=== PATIENT | female | born 1965 | race Caucasian/White ===

== ENCOUNTER → 2019-01-26 18:48 | Outpatient (CLI) | payer SELFPAY | PROVIDERS: PCP Obstetrics & Gynecology; Visit Provider Physician Assistant | DX: M54.5 Low back pain (principal) | CPT/HCPCS: 87086 ==

== ENCOUNTER 2023-09-19 09:00 | Outpatient (RCR) | payer OTHER, SELFPAY ==
--- NOTE | 2023-08-08 15:00 | OT.OP.EVAL ---
Visit Care Team Role Provider Type Antionette Pickett MD Primary Care Provider Physician Specialty: Gynecology CLEANING TEAM MEMBER Obstetrics Address: [address] [place] [address], [phone] Email: [email or web address] Cody Loyd DO Attending Provider Non-Staff Referring Provider Specialty: Family Practice Address: [address] [place] [address], [phone] Fax: Email: Occupational Therapy Initial Evaluation OT Outpatient Adult Evaluation Start: 08/08/23 14:41 Freq: Status: Active Protocol: Document 08/08/23 15:00 AMS (Rec: 08/09/23 10:00 AMS [id number]) General Information - Adult Plan of Care Dates 08/08/23 - 09/19/23 Visit Start Time 13:10 Visit Stop Time 13:45 Treatment Setting Outpatient Care Note Type Initial Evaluation Referring Physician Cody Loyd DO Reason for Referral Pain of L thumb Precautions # visits = 6 Identification Confirmed Yes Identification Confirmed By Self, Steven Goals Treatment Paraffin. B hands. x 10 minutes. Power Barker Operator Goals 1. Steven will be modified independent with execution of home exercise program referencing written and visual instructions as needed. 2. Steven will verbalize 100% understanding of basic hand joint protection principles. Assessment/Plan Treatment Assessment Steven is 58 y.o.; she is R hand dominant. She was referred to outpatient OT secondary to ongoing L thumb pain. She reported that it presented 3-4 yrs ago; she denied any trauma that led to onset of symptoms. She had an x-ray at [facility] within the last 2 months; she reported that non- acute bone fragments were found floating around in the L hand in the x-ray. x-ray records were not available to this clinician at time of evaluation. Medical history is significant for back/muscle/nerve pain; cold intolerance; lumbrosacral disc disease; h/o R radius/ ulna distal fracture; spinal stenosis of lumbar region w/ neurogenic claudication; spondylolisthesis. Surgical history: R elbow bone chip removal; laparoscopy; partial hysterectomy; spine surgery; tubal ligation. She denied current use of medication, topical medication and/or splint for management of L thumb pain symptoms; trialed Voltaren w/ no success. Intermittent use of ice and heat. Overall, reported that ' very little gives her relief'. Pain Assessment Grid completed ; indicated of 6-8 out of 10 on pain scale relative to dorsal/volar surfaces of L thumb. Indication of 4 out of 10 on pain scale relative to R thumb. See EMR for additional details. 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 Mild L thumb edema noted. (+) bilateral thumb adductor tightness w/ L tightness slightly > R noted w/ palpation. 0-45 degrees active L radial thumb abduction vs 0 -45 degrees active R radial thumb abduction. 0-50 degrees active L palmar radial thumb abduction vs 0-50 degrees active R palmar radial thumb abduction. OT rec to est HEP and to provide joint protection education and to assist w/ identification of conservative measures of pain/swelling management. Home Exercise Program 08/08/23 = Rec consideration of home paraffin bath. Instructed in bilateral myofascial thumb add release; hold for 20-30 sec and switch. Repeat. Complete as needed. Instructed in palpation pre- and post- myofasical treatment d/t determine if change palpable. Began education re: basic joint protection for the hands, specifically avoiding positions of deformity and rec avoiding heavy resisted and/ or prolonged pinching w/ the thumbs. Length of treatment (weeks) 6 Plan of Care Start Date 08/08/23 Plan of Care End Date 09/19/23 Treatment Frequency Once a Week Therapeutic Contents Active Range of Motion, Adaptive Equipment Education, Client Education,Functional Activities,Home Exercise Program,Joint Protection, Manual Therapy,Education, Neurodevelopment Treatment, Neuromuscular Re-Education, Self-Care,Stretching/ Flexibility Activities, Therapeutic Activities, Therapeutic Exercises, Modalities Modalities As Needed,As Prescribed Additional Types of Modalities Heat/Ice/Contrast baths/ Ultrasound/Paraffin bath. Suggested Referrals Physical Therapy
--- NOTE | 2023-08-16 16:01 | OT.OP.TRT ---
Visit Care Team Role Provider Type Antionette Pickett MD Primary Care Provider Physician Specialty: Gynecology METAL TRIMMER Obstetrics Address: [address] [place] [address], [phone] Email: [email or web address] Cody Loyd DO Attending Provider Non-Staff Referring Provider Specialty: Family Practice Address: [address] [place] [address], [phone] Fax: Email: Occupational Therapy Treatment Note OT Outpatient Treatment Note - Adult Start: 08/08/23 14:41 Freq: Status: Active Protocol: Document 08/16/23 15:53 AMS (Rec: 08/16/23 16:01 AMS [id number]) OT Outpatient Adult Treatment Note Session Time Visit Start Time 10:30 Visit Stop Time 11:10 Visit Information Visit Number 2/ Plan of Care Dates 08/08/23 - 09/19/23 Insurance Information [facility]; x 6 auth by MD Setting Treatment Setting Outpatient Care Visit Type Note Type Treatment Note General Information General Information Steven is 58 y.o.; she is R hand dominant. She was referred to outpatient OT secondary to ongoing L thumb pain. She reported that it presented 3-4 yrs ago; she denied any trauma that led to onset of symptoms. She had an x-ray at [facility] within the last 2 months; she reported that non- acute bone fragments were found floating around in the L hand in the x-ray. x-ray records were not available to this clinician at time of evaluation. Medical history is significant for back/muscle/nerve pain; cold intolerance; lumbrosacral disc disease; h/o R radius/ ulna distal fracture; spinal stenosis of lumbar region w/ neurogenic claudication; spondylolisthesis. Surgical history: R elbow bone chip removal; laparoscopy; partial hysterectomy; spine surgery; tubal ligation. She denied current use of medication, topical medication and/or splint for management of L thumb pain symptoms; trialed Voltaren w/ no success. Intermittent use of ice and heat. Overall, reported that ' very little gives her relief'. - Subjective Identification Type Name Identification Reconciled With Medical Record Observations Awaiting copies of records from [facility]. Patient/Caregiver Compliance with Home Good Exercise Program - Objective Objective Measurements Please refer to below for progress towards meeting established OT goals: Documentation Engineer Goals 1. Steven will be modified independent with execution of home exercise program referencing written and visual instructions as needed. 2. Steven will verbalize 100% understanding of basic hand joint protection principles. - Treatment 2 Descriptor Ultrasound. 20% duty cycle. 2. 0w/cm2. Dorsal L thumb webspace. Skin intact pre- and post- treatment. 1 Descriptor Paraffin bath. B hands/wrists. x 10 minutes. Skin intact pre - and post- treatment. Exercises 1 Descriptor Reviewed bilateral thumb add myofascial release. Instructed in gentle resistive strengthening w/ use of single rubberband for thumb abduction and thumb extension. - Assessment Assessment of Improvement Advanced HEP. See below. (+) response to ultrasound and paraffin. OT rec to est HEP and to provide joint protection education and to assist w/ identification of conservative measures of pain/swelling management. Home Exercise Program 08/16/23 = Instructed in gentle thumb strengthening w/ use of single rubberband; rec gentle resistive thumb ext and thumb abd w/ use of single rubberband; rubberband to be positioned proximal to MPJ; rec 3 sets x 15 reps, more reps as tolerated w/ increase to 20 reps; every other day or 3 x a week. 08/08/23 = Rec consideration of home paraffin bath. Instructed in bilateral myofascial thumb add release; hold for 20-30 sec and switch. Repeat. Complete as needed. Instructed in palpation pre- and post- myofasical treatment d/t determine if change palpable. Began education re: basic joint protection for the hands, specifically avoiding positions of deformity and rec avoiding heavy resisted and/ or prolonged pinching w/ the thumbs. - Plan Therapy Recommendations Advance per Rehabilitation Protocol
--- NOTE | 2023-08-22 15:47 | OT.OP.TRT ---
Visit Care Team Role Provider Type Antionette Pickett MD Primary Care Provider Physician Specialty: Gynecology RIVER TESTER Obstetrics Address: [address] [place] [address], [phone] Email: [email or web address] Cody Loyd DO Attending Provider Non-Staff Referring Provider Specialty: Family Practice Address: [address] [place] [address], [phone] Fax: Email: Occupational Therapy Treatment Note OT Outpatient Treatment Note - Adult Start: 08/08/23 14:41 Freq: Status: Active Protocol: Document 08/22/23 15:34 AMS (Rec: 08/22/23 15:47 AMS [id number]) OT Outpatient Adult Treatment Note Session Time Visit Start Time 13:05 Visit Stop Time 13:45 Visit Information Visit Number 05/23 Plan of Care Dates 08/08/23 - 09/19/[address] [facility]; x 6 auth by MD Setting Treatment Setting Outpatient Care Visit Type Note Type Treatment Note General Information General Information Steven is 58 y.o.; she is R hand dominant. She was referred to outpatient OT secondary to ongoing L thumb pain. She reported that it presented 3-4 yrs ago; she denied any trauma that led to onset of symptoms. She had an x-ray at [facility] within the last 2 months; she reported that non- acute bone fragments were found floating around in the L hand in the x-ray. x-ray records were not available to this clinician at time of evaluation. Medical history is significant for back/muscle/nerve pain; cold intolerance; lumbrosacral disc disease; h/o R radius/ ulna distal fracture; spinal stenosis of lumbar region w/ neurogenic claudication; spondylolisthesis. Surgical history: R elbow bone chip removal; laparoscopy; partial hysterectomy; spine surgery; tubal ligation. She denied current use of medication, topical medication and/or splint for management of L thumb pain symptoms; trialed Voltaren w/ no success. Intermittent use of ice and heat. Overall, reported that ' very little gives her relief'. - Subjective Identification Type Name Identification Reconciled With Medical Record Observations X-ray 06/12/23 at [facility] for L thumb pain: 2 views of hand acquired. Findings: Mild degenerative changes at the 1st CMCJ and STT joints. No displaced fracture or dislocation. Nonacute bone fragments are seen at the base of the 1st metacarpal. If there is high concern for further derangement, consider MRI evaluation. Approved by Mariano Gary MD Pain/discomfort reported w/ light resisted thumb exercises ; thus, transitioned to AROM. Patient/Caregiver Compliance with Home Good Exercise Program - Objective Objective Measurements Please refer to below for progress towards meeting established OT goals: Custodial Goals 1. Steven will be modified independent with execution of home exercise program referencing written and visual instructions as needed. 2. Steven will verbalize 100% understanding of basic hand joint protection principles. - Treatment 2 Descriptor Ultrasound. 20% duty cycle. 2. 0w/cm2. Dorsal L thumb webspace. Skin intact pre- and post- treatment. 1 Descriptor Paraffin bath. B hands/wrists. x 13 minutes. Skin intact pre - and post- treatment. Exercises 1 Descriptor Reviewed bilateral thumb add myofascial release. Instructed in gentle resistive strengthening w/ use of single rubberband for thumb abduction and thumb extension. - Assessment Assessment of Improvement X-ray 06/12/23 at [facility] for L thumb pain: 2 views of hand acquired. Findings: Mild degenerative changes at the 1st CMCJ and STT joints. No displaced fracture or dislocation. Nonacute bone fragments are seen at the base of the 1st metacarpal. If there is high concern for further derangement, consider MRI evaluation. Approved by Mariano Gary MD Steven indicated that light resistant thumb exercises exacerbated thumb symptoms; thus, transitioned to AROM exercises as an alternative. Report of doing AROM exercises daily. Reviewed recommendations for gentle, light resistive thumb strengthening exercise(s) and/ or AROM if resistance exercises not tolerated; heat to support range of motion of thumb; conservative measures for swelling management, such as ice or contrast baths and/ or home investment in paraffin bath (Jodie is brand used in clinic); basic joint protection principles; use of adaptive equipment and/or compensatory strategies (e.g., spring loaded scissors); and consideration of thumb spica brace. Did agree that Steven should see UE hand specialist to discuss less conservative measures of treatment; may benefit from a referral to certified hand therapist for fabrication of custom-thumb spica splint. OT rec to est HEP and to provide joint protection education and to assist w/ identification of conservative measures of pain/swelling management. Home Exercise Program 08/16/23 = Instructed in gentle thumb strengthening w/ use of single rubberband; rec gentle resistive thumb ext and thumb abd w/ use of single rubberband; rubberband to be positioned proximal to MPJ; rec 3 sets x 15 reps, more reps as tolerated w/ increase to 20 reps; every other day or 3 x a week. 08/08/23 = Rec consideration of home paraffin bath. Instructed in bilateral myofascial thumb add release; hold for 20-30 sec and switch. Repeat. Complete as needed. Instructed in palpation pre- and post- myofasical treatment d/t determine if change palpable. Began education re: basic joint protection for the hands, specifically avoiding positions of deformity and rec avoiding heavy resisted and/ or prolonged pinching w/ the thumbs. - Plan Therapy Recommendations Advance per Rehabilitation Protocol Other Referrals Certified hand therapist (for consideration of custom-thumb spica splint)
--- NOTE | 2023-09-11 12:18 | OT.OP.TRT ---
Visit Care Team Role Provider Type Antionette Pickett MD Primary Care Provider Physician Specialty: Gynecology LUG LOADER Obstetrics Address: [address] [place] [address], [phone] Email: [email or web address] Cody Loyd DO Attending Provider Non-Staff Referring Provider Specialty: Family Practice Address: [address] [place] [address], [phone] Email: Occupational Therapy Treatment Note OT Outpatient Treatment Note - Adult Start: 08/08/23 14:41 Freq: Status: Active Protocol: Document 09/11/23 12:15 AMS (Rec: 09/11/23 12:18 AMS [id number]) OT Outpatient Adult Treatment Note Session Time Visit Start Time 09:00 Visit Stop Time 09:30 Visit Information Visit Number 4/6 Plan of Care Dates 08/08/23 - 09/19/23 Insurance Information [facility]; x 6 auth by MD Setting Treatment Setting Outpatient Care Visit Type Note Type Treatment Note General Information General Information Steven is 58 y.o.; she is R hand dominant. She was referred to outpatient OT secondary to ongoing L thumb pain. She reported that it presented 3-4 yrs ago; she denied any trauma that led to onset of symptoms. She had an x-ray at [facility] within the last 2 months; she reported that non- acute bone fragments were found floating around in the L hand in the x-ray. x-ray records were not available to this clinician at time of evaluation. Medical history is significant for back/muscle/nerve pain; cold intolerance; lumbrosacral disc disease; h/o R radius/ ulna distal fracture; spinal stenosis of lumbar region w/ neurogenic claudication; spondylolisthesis. Surgical history: R elbow bone chip removal; laparoscopy; partial hysterectomy; spine surgery; tubal ligation. She denied current use of medication, topical medication and/or splint for management of L thumb pain symptoms; trialed Voltaren w/ no success. Intermittent use of ice and heat. Overall, reported that ' very little gives her relief'. - Subjective Identification Type Name Identification Reconciled With Medical Record Observations X-ray 06/12/23 at [facility] for L thumb pain: 2 views of hand acquired. Findings: Mild degenerative changes at the 1st CMCJ and STT joints. No displaced fracture or dislocation. Nonacute bone fragments are seen at the base of the 1st metacarpal. If there is high concern for further derangement, consider MRI evaluation. Approved by Mariano Gary MD Pain/discomfort reported w/ light resisted thumb exercises ; thus, transitioned to AROM. Patient/Caregiver Compliance with Home Good Exercise Program - Objective Objective Measurements Please refer to below for progress towards meeting established OT goals: Correction Goals 1. Steven will be modified independent with execution of home exercise program referencing written and visual instructions as needed. 2. Steven will verbalize 100% understanding of basic hand joint protection principles. - Treatment 2 Descriptor Ultrasound. 20% duty cycle. 2. 0w/cm2. Dorsal L thumb webspace. Skin intact pre- and post- treatment. 1 Descriptor Paraffin bath. B hands/wrists. x 13 minutes. Skin intact pre - and post- treatment. Exercises 1 Descriptor Reviewed bilateral thumb add myofascial release. Instructed in gentle resistive strengthening w/ use of single rubberband for thumb abduction and thumb extension. - Assessment Assessment of Improvement X-ray 06/12/23 at [facility] for L thumb pain: 2 views of hand acquired. Findings: Mild degenerative changes at the 1st CMCJ and STT joints. No displaced fracture or dislocation. Nonacute bone fragments are seen at the base of the 1st metacarpal. If there is high concern for further derangement, consider MRI evaluation. Approved by Mariano Gary MD Report of doing AROM exercises daily. Some left wrist soreness reported; rec passive wrist stretches. (-) signs or symptoms of intrinsic tightness bilaterally. Did agree that Steven should see UE hand specialist to discuss less conservative measures of treatment; may benefit from a referral to certified hand therapist for fabrication of custom-thumb spica splint. OT rec to est HEP and to provide joint protection education and to assist w/ identification of conservative measures of pain/swelling management. Home Exercise Program 08/16/23 = Instructed in gentle thumb strengthening w/ use of single rubberband; rec gentle resistive thumb ext and thumb abd w/ use of single rubberband; rubberband to be positioned proximal to MPJ; rec 3 sets x 15 reps, more reps as tolerated w/ increase to 20 reps; every other day or 3 x a week. 08/08/23 = Rec consideration of home paraffin bath. Instructed in bilateral myofascial thumb add release; hold for 20-30 sec and switch. Repeat. Complete as needed. Instructed in palpation pre- and post- myofasical treatment d/t determine if change palpable. Began education re: basic joint protection for the hands, specifically avoiding positions of deformity and rec avoiding heavy resisted and/ or prolonged pinching w/ the thumbs. - Plan Therapy Recommendations Advance per Rehabilitation Protocol Other Referrals Certified hand therapist (for consideration of custom-thumb spica splint)
--- NOTE | 2023-09-19 09:55 | OT.OPPOC ---
Physical, Occupational & Speech Therapy At [facility] Steven Brownlee [id number] 1965 Visit Care Team Role Provider Type Antionette Pickett MD Primary Care Provider Physician Address: [address] [place] [address], [id number] Cody Loyd DO Attending Provider Non-Staff Referring Provider Address: [address] [place] [address], [id number] Occupational Therapy Plan of Care OT Outpatient Adult Evaluation Start: 08/08/23 14:41 Freq: Status: Active Protocol: Document 08/08/23 15:00 AMS (Rec: 08/09/23 10:00 AMS [id number]) General Information - Adult Visit Information Plan of Care Dates 08/08/23 - 09/19/23 Session Time Visit Start Time 13:10 Visit Stop Time 13:45 Setting Treatment Setting Outpatient Care Visit Type Note Type Initial Evaluation Referral Referring Physician Cody Loyd DO Reason for Referral Pain of L thumb Precautions # visits = 6 Identification Identification Confirmed Yes Identification Confirmed By Self, Steven Goals Treatment Treatment Paraffin. B hands. x 10 minutes. Shelter Goals [employer] Team Member Goals 1. Steven will be modified independent with execution of home exercise program referencing written and visual instructions as needed. 2. Steven will verbalize 100% understanding of basic hand joint protection principles. Assessment/Plan Assessment Treatment Assessment Steven is 58 y.o.; she is R hand dominant. She was referred to outpatient OT secondary to ongoing L thumb pain. She reported that it presented 3-4 yrs ago; she denied any trauma that led to onset of symptoms. She had an x-ray at [facility] within the last 2 months; she reported that non- acute bone fragments were found floating around in the L hand in the x-ray. x-ray records were not available to this clinician at time of evaluation. Medical history is significant for back/muscle/nerve pain; cold intolerance; lumbrosacral disc disease; h/o R radius/ ulna distal fracture; spinal stenosis of lumbar region w/ neurogenic claudication; spondylolisthesis. Surgical history: R elbow bone chip removal; laparoscopy; partial hysterectomy; spine surgery; tubal ligation. She denied current use of medication, topical medication and/or splint for management of L thumb pain symptoms; trialed Voltaren w/ no success. Intermittent use of ice and heat. Overall, reported that ' very little gives her relief'. Pain Assessment Grid completed ; indicated of 6-8 out of 10 on pain scale relative to dorsal/volar surfaces of L thumb. Indication of 4 out of 10 on pain scale relative to R thumb. See EMR for additional details. 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 Mild L thumb edema noted. (+) bilateral thumb adductor tightness w/ L tightness slightly > R noted w/ palpation. 0-45 degrees active L radial thumb abduction vs 0 -45 degrees active R radial thumb abduction. 0-50 degrees active L palmar radial thumb abduction vs 0-50 degrees active R palmar radial thumb abduction. OT rec to est HEP and to provide joint protection education and to assist w/ identification of conservative measures of pain/swelling management. Home Exercise Program 08/08/23 = Rec consideration of home paraffin bath. Instructed in bilateral myofascial thumb add release; hold for 20-30 sec and switch. Repeat. Complete as needed. Instructed in palpation pre- and post- myofasical treatment d/t determine if change palpable. Began education re: basic joint protection for the hands, specifically avoiding positions of deformity and rec avoiding heavy resisted and/ or prolonged pinching w/ the thumbs. Plan Length of treatment (weeks) 6 Plan of Care Start Date 08/08/23 Plan of Care End Date 09/19/23 Treatment Frequency Once a Week Therapeutic Contents Active Range of Motion, Adaptive Equipment Education, Client Education,Functional Activities,Home Exercise Program,Joint Protection, Manual Therapy,Education, Neurodevelopment Treatment, Neuromuscular Re-Education, Self-Care,Stretching/ Flexibility Activities, Therapeutic Activities, Therapeutic Exercises, Modalities Modalities As Needed,As Prescribed Additional Types of Modalities Heat/Ice/Contrast baths/ Ultrasound/Paraffin bath. Suggested Referrals Physical Therapy Functional Wrist/Hand Scan Hand Side Sensory Assessment Sensory Profile2 OT Outpatient Treatment Note - Adult Start: 08/08/23 14:41 Freq: Status: Active Protocol: Document 09/19/23 09:44 AMS (Rec: 09/19/23 09:54 AMS [id number]) OT Outpatient Adult Treatment Note Session Time Visit Start Time 09:00 Visit Stop Time 09:30 Visit Information Visit Number [id number] Plan of Care Dates 09/19/23 - 10/24/23 Insurance Information [facility]; x 6 auth by MD Setting Treatment Setting Outpatient Care Visit Type Note Type Treatment Note General Information General Information Steven is 58 y.o.; she is R hand dominant. She was referred to outpatient OT secondary to ongoing L thumb pain. She reported that it presented 3-4 yrs ago; she denied any trauma that led to onset of symptoms. She had an x-ray at [facility] within the last 2 months; she reported that non- acute bone fragments were found floating around in the L hand in the x-ray. x-ray records were not available to this clinician at time of evaluation. Medical history is significant for back/muscle/nerve pain; cold intolerance; lumbrosacral disc disease; h/o R radius/ ulna distal fracture; spinal stenosis of lumbar region w/ neurogenic claudication; spondylolisthesis. Surgical history: R elbow bone chip removal; laparoscopy; partial hysterectomy; spine surgery; tubal ligation. She denied current use of medication, topical medication and/or splint for management of L thumb pain symptoms; trialed Voltaren w/ no success. Intermittent use of ice and heat. Overall, reported that ' very little gives her relief'. - Subjective Identification Type Name Identification Reconciled With Medical Record Observations Steven completed Hand/Wrist Pain Assessment Grid; she indicated 3 out of 10 on pain scale relative to left thumb and 4-5 out of 10 on pain scale relative to R thumb. See EMR for details. X-ray 06/12/23 at [facility] for L thumb pain: 2 views of hand acquired. Findings: Mild degenerative changes at the 1st CMCJ and STT joints. No displaced fracture or dislocation. Nonacute bone fragments are seen at the base of the 1st metacarpal. If there is high concern for further derangement, consider MRI evaluation. Approved by Mariano Gary MD Patient/Caregiver Compliance with Home Good Exercise Program - Objective Objective Measurements Please refer to below for progress towards meeting established OT goals: Shelter Goals 1. Steven will be modified independent with execution of home exercise program referencing written and visual instructions as needed. 2. Steven will verbalize 100% understanding of basic hand joint protection principles. - Treatment 2 Descriptor Ultrasound. 20% duty cycle. 2. 0w/cm2. x 10 minutes. Dorsal L thumb webspace. Skin intact pre- and post- treatment. 1 Descriptor Paraffin bath. B hands/wrists. x 13 minutes. Skin intact pre - and post- treatment. Exercises 1 Descriptor Reviewed bilateral thumb add myofascial release. Instructed in gentle resistive strengthening w/ use of single rubberband for thumb abduction and thumb extension. - Assessment Assessment of Improvement Some reduction in pain/ discomfort of bilateral thumbs since time of initial eval; this is evidenced by Wrist/ Hand Pain Assessment Grid findings (3 out of 10 vs 4 out of 10 relative to right thumb pain and 4-5 out of 10 vs 6-8 out of 10 left thumb pain). Steven also reports slight reduction of tightness of left thumb webspace/thumb add which is palpable; rec working on site of attachment but continuing w/ bilateral myofascial thumb adductor release in web space. [facility] is awaiting scheduling of appointment to see Dr. Simon at [facility] ( orthopedic hand specialist) to discuss less conservative measures of treatment; may benefit from a referral to certified hand therapist for fabrication of custom-thumb spica splint. An additional visit rec to ensure understanding of HEP and answer any remaining questions . X-ray 06/12/23 at [facility] for L thumb pain: 2 views of hand acquired. Findings: Mild degenerative changes at the 1st CMCJ and STT joints. No displaced fracture or dislocation. Nonacute bone fragments are seen at the base of the 1st metacarpal. If there is high concern for further derangement, consider MRI evaluation. Approved by Mariano Gary MD Home Exercise Program 08/16/23 = Instructed in gentle thumb strengthening w/ use of single rubberband; rec gentle resistive thumb ext and thumb abd w/ use of single rubberband; rubberband to be positioned proximal to MPJ; rec 3 sets x 15 reps, more reps as tolerated w/ increase to 20 reps; every other day or 3 x a week. 08/08/23 = Rec consideration of home paraffin bath. Instructed in bilateral myofascial thumb add release; hold for 20-30 sec and switch. Repeat. Complete as needed. Instructed in palpation pre- and post- myofasical treatment d/t determine if change palpable. Began education re: basic joint protection for the hands, specifically avoiding positions of deformity and rec avoiding heavy resisted and/ or prolonged pinching w/ the thumbs. - Plan Therapy Recommendations Advance per Rehabilitation Protocol Comment 5 weeks Frequency of Treatment Once a Week Therapeutic Contents Active Range of Motion, Adaptive Equipment Education, Functional Activities,Home Exercise Program,Joint Protection,Manual Therapy, Education,Self-Care,Stretching /Flexibility Activities, Therapeutic Activities, Therapeutic Exercises, Modalities Modalities As Needed,As Prescribed Additional Types of Modalities Heat/Ice/Contrast Baths/ Paraffin Bath Other Referrals Certified hand therapist (for consideration of custom-thumb spica splint) Electronically Signed by: Candice Bautista OT 09/19/23 0955 If you are in agreement with this Plan of Care, please return a signed and dated copy. I have reviewed this Plan of Care and certify that the skilled therapy services above are required to meet the patient?s needs. Physician Signature Date Printed Name and Credentials Clinical Instructor Signature Printed Name and Credentials
--- NOTE | 2023-10-24 11:16 | OT.OP.DC ---
Visit Care Team Role Provider Type Antionette Pickett MD Primary Care Provider Physician Address: [address] [place] [address], [id number] Email: [email or web address] Cody Loyd DO Attending Provider Non-Staff Referring Provider Address: [address] [place] [address], [id number] Email: OT Outpatient OT Outpatient Adult Evaluation Start: 08/08/23 14:41 Freq: Status: Active Protocol: Document 08/08/23 15:00 AMS (Rec: 08/09/23 10:00 AMS [id number]) General Information - Adult Visit Information Plan of Care Dates 08/08/23 - 09/19/23 Session Time Visit Start Time 13:10 Visit Stop Time 13:45 Setting Treatment Setting Outpatient Care Visit Type Note Type Initial Evaluation Referral Referring Physician Cody Loyd DO Reason for Referral Pain of L thumb Precautions # visits = 6 Identification Identification Confirmed Yes Identification Confirmed By Self, Steven Goals Treatment Treatment Paraffin. B hands. x 10 minutes. [facility] Goals [facility] Goals 1. Steven will be modified independent with execution of home exercise program referencing written and visual instructions as needed. 2. Steven will verbalize 100% understanding of basic hand joint protection principles. Assessment/Plan Assessment Treatment Assessment Steven is 58 y.o.; she is R hand dominant. She was referred to outpatient OT secondary to ongoing L thumb pain. She reported that it presented 3-4 yrs ago; she denied any trauma that led to onset of symptoms. She had an x-ray at [facility] within the last 2 months; she reported that non- acute bone fragments were found floating around in the L hand in the x-ray. x-ray records were not available to this clinician at time of evaluation. Medical history is significant for back/muscle/nerve pain; cold intolerance; lumbrosacral disc disease; h/o R radius/ ulna distal fracture; spinal stenosis of lumbar region w/ neurogenic claudication; spondylolisthesis. Surgical history: R elbow bone chip removal; laparoscopy; partial hysterectomy; spine surgery; tubal ligation. She denied current use of medication, topical medication and/or splint for management of L thumb pain symptoms; trialed Voltaren w/ no success. Intermittent use of ice and heat. Overall, reported that ' very little gives her relief'. Pain Assessment Grid completed ; indicated of 6-8 out of 10 on pain scale relative to dorsal/volar surfaces of L thumb. Indication of 4 out of 10 on pain scale relative to R thumb. See EMR for additional details. 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 Mild L thumb edema noted. (+) bilateral thumb adductor tightness w/ L tightness slightly > R noted w/ palpation. 0-45 degrees active L radial thumb abduction vs 0 -45 degrees active R radial thumb abduction. 0-50 degrees active L palmar radial thumb abduction vs 0-50 degrees active R palmar radial thumb abduction. OT rec to est HEP and to provide joint protection education and to assist w/ identification of conservative measures of pain/swelling management. Home Exercise Program 08/08/23 = Rec consideration of home paraffin bath. Instructed in bilateral myofascial thumb add release; hold for 20-30 sec and switch. Repeat. Complete as needed. Instructed in palpation pre- and post- myofasical treatment d/t determine if change palpable. Began education re: basic joint protection for the hands, specifically avoiding positions of deformity and rec avoiding heavy resisted and/ or prolonged pinching w/ the thumbs. Plan Length of treatment (weeks) 6 Plan of Care Start Date 08/08/23 Plan of Care End Date 09/19/23 Treatment Frequency Once a Week Therapeutic Contents Active Range of Motion, Adaptive Equipment Education, Client Education,Functional Activities,Home Exercise Program,Joint Protection, Manual Therapy,Education, Neurodevelopment Treatment, Neuromuscular Re-Education, Self-Care,Stretching/ Flexibility Activities, Therapeutic Activities, Therapeutic Exercises, Modalities Modalities As Needed,As Prescribed Additional Types of Modalities Heat/Ice/Contrast baths/ Ultrasound/Paraffin bath. Suggested Referrals Physical Therapy Functional Wrist/Hand Scan Hand Side Sensory Assessment Sensory Profile2 OT Outpatient Treatment Note - Adult Start: 08/08/23 14:41 Freq: Status: Active Protocol: Document 10/24/23 11:13 AMS (Rec: 10/24/23 11:16 [facility] [id number]) OT Outpatient Adult Treatment Note Visit Information Visit Number [id number] Plan of Care Dates 09/19/23 - 10/24/23 Insurance Information [facility]; x 6 auth by Setting Treatment Setting Outpatient Care Visit Type Note Type Discharge Summary General Information General Information Steven is 58 y.o.; she is R hand dominant. She was referred to outpatient OT secondary to ongoing L thumb pain. She reported that it presented 3-4 yrs ago; she denied any trauma that led to onset of symptoms. She had an x-ray at [facility] within the last 2 months; she reported that non- acute bone fragments were found floating around in the L hand in the x-ray. x-ray records were not available to this clinician at time of evaluation. Medical history is significant for back/muscle/nerve pain; cold intolerance; lumbrosacral disc disease; h/o R radius/ ulna distal fracture; spinal stenosis of lumbar region w/ neurogenic claudication; spondylolisthesis. Surgical history: R elbow bone chip removal; laparoscopy; partial hysterectomy; spine surgery; tubal ligation. She denied current use of medication, topical medication and/or splint for management of L thumb pain symptoms; trialed Voltaren w/ no success. Intermittent use of ice and heat. Overall, reported that ' very little gives her relief'. - Subjective Observations Given that Steven has not been seen in 30+ days and her outpatient OT POC on this date 10/24/23, it is recommended that she be d/c from outpatient OT and therapist to re-evaluate as deemed appropriate with receipt of new referral from PCP. 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 Steven will be modified independent with execution of home exercise program referencing written and visual instructions as needed. 2. Steven will verbalize 100% understanding of basic hand joint protection principles. - - Assessment Assessment of Improvement Given that Steven has not been seen in 30+ days and her outpatient OT POC on this date 10/24/23, it is recommended that she be d/c from outpatient OT and therapist to re-evaluate as deemed appropriate with receipt of new referral from PCP. - Plan Therapy Recommendations Discharge from Occupational Therapy
== END 2023-12-05 08:01 | disposition home or self-care (01) ==
LOC: OT 09:00
PROVIDERS: PCP Obstetrics & Gynecology; Referring Provider Family Medicine; Visit Provider Family Medicine
DX: M79.645 Pain in left finger(s) (principal)
CPT/HCPCS: 97018; 97035; 97110; 97165